=== PATIENT | male | born 2000 | race Caucasian/White ===

== ENCOUNTER → 2020-07-07 12:34 | Outpatient (CLI) | payer OTHER, SELFPAY ==
[2020-07-07 14:08] LABS: COVID19 -Nasal RAPID POSITIVE (Negative)
== END ==
PROVIDERS: Visit Provider Physician Assistant
DX: U07.1 COVID-19 (principal)
CPT/HCPCS: 87635

== ENCOUNTER 2023-07-04 10:30 | Emergency (ER) | payer OTHER, SELFPAY ==
[2023-07-04 10:35] VITALS: BP 140/82; PULSE 82; RESP 16; O2SAT 100; BMI 27.2
--- NOTE | 2023-07-04 10:39 | DI.RAD.S_ITS ---
PROCEDURE: XR FINGER LT MIN 2V INDICATIONS: jammed thumb/painful x 3 weeks TECHNIQUE: AP hand, 2 views of the left 1st finger(s) acquired. COMPARISON: None. FINDINGS: Bones: No fractures or dislocations. No suspicious bony lesions. Soft tissues: No suspicious soft tissue calcifications. IMPRESSION: No acute bony abnormality. If pain persists, consider cross-sectional imaging to evaluate for ligamentous injury. Dictated by: Karol Vilchis M.D. on 07/04/2023 at 11:20 Approved by: Karol Vilchis M.D. on 07/04/2023 at 11:21
--- NOTE | 2023-07-04 10:40 | DI.RAD.S_ITS ---
PROCEDURE: XR WRIST LT MIN 3V INDICATIONS: wrist pain TECHNIQUE: 4 views of the wrist were acquired. COMPARISON: None. FINDINGS: Bones: No fractures or dislocations. No suspicious bony lesions. Soft tissues: No suspicious soft tissue calcifications. IMPRESSION: No acute bony abnormality. If pain persists, consider cross-sectional imaging to evaluate for occult fracture or ligamentous injury. Dictated by: Karol Vilchis M.D. on 07/04/2023 at 11:19 Approved by: Karol Vilchis M.D. on 07/04/2023 at 11:20
--- NOTE | 2023-07-04 11:44 | ED_ITS ---
HPI - Extremity Injury (Upper) <Ilda Parker PA-C - Last Filed: 07/04/23 11:54> General Chief Complaint: Extremity Injury, Upper Stated Complaint: L thumb Time Seen by Provider: 07/04/23 11:18 Source: patient Mode of arrival: Ambulatory History of Present Illness HPI narrative: 22-year-old male presents to the ED status post a left hand injury sustained 3 weeks ago. Patient states that he was playing basketball when he accidentally jammed his left thumb against another player. Patient states that following that patient had pain in the left thumb with bruising in the thenar eminence. Patient states that the bruising has resolved since then, however he still feels some pain when flexing his thumb. Patient denies numbness, tingling, weakness. Patient is right-hand dominant. Related Data Allergies Allergy/AdvReac Type Severity Reaction Status Date / Time amoxicillin [From Augmentin] Allergy Anaphylaxis Verified 07/04/23 10:35 clavulanic acid Allergy Anaphylaxis Verified 07/04/23 10:35 [From Augmentin] Review of Systems <Ilda Parker PA-C - Last Filed: 07/04/23 11:54> Constitutional Constitutional: Denies chills, Denies fatigue, Denies fever(s), Denies frequent falls, Denies lethargy and Denies weakness Eyes Eyes: Denies change in vision, Denies eye discharge, Denies irritation and Denies loss of vision ENT Ears, Nose, Mouth, and Throat: Denies change in voice, Denies dizziness, Denies neck pain, Denies sore throat and Denies throat swelling Cardiovascular Cardiovascular: Denies chest pain, Denies irregular heart rhythm, Denies lightheadedness, Denies palpitations, Denies dyspnea, Denies dyspnea on exertion and Denies orthopnea Respiratory Respiratory: Denies cough, Denies dyspnea, Denies dyspnea on exertion and Denies wheezing Gastrointestinal Gastrointestinal: Denies abdominal pain, Denies change in bowel habits, Denies diarrhea, Denies nausea and Denies vomiting Musculoskeletal Musculoskeletal: Denies neck pain and Denies numbness Comments: Left thumb pain Integumentary/Breasts Skin/Breast: Denies pruritus, Denies erythema, Denies rash and Denies wounds Neurologic Neurologic: Denies behavioral changes, Denies confusion, Denies dizziness, Denies frequent falls, Denies loss of vision, Denies numbness and Denies weakness Psychiatric Psychiatric: Denies anxiety, Denies behavioral changes, Denies confusion, Denies depression, Denies homicidal ideation and Denies suicidal ideation Endocrine Endocrine: Denies fatigue, Denies flushing and Denies palpitations Hematologic/Lymphatic Hematologic/Lymphatic: Denies easy bruising Allergic/Immunologic Allergic/Immunologic: Denies urticaria, Denies throat swelling and Denies wheezing Patient History <Ilad Parker PA-C - Last Filed: 07/04/23 11:54> Medical History URI (upper respiratory infection) Social History Smoking Status: Never smoker Smoking Status: Never smoker alcohol intake frequency: a few times a week Substance Use Type: does not use Exam <Ilda Parker PA-C - Last Filed: 07/04/23 11:54> Narrative Exam Narrative: Const General:?cooperative, healthy appearing and comfortable [facility] Head:?normal to inspection Ears:?hearing grossly normal bilaterally Nose:?external nose normal Face and sinus:?normal facial exam and sinuses nontender Mouth:?oral mucosae normal Throat:?posterior oropharynx normal Eyes General:?appearance normal, both eyes and all related structures Neck Neck:?normal visual inspection and no lymphadenopathy noted Resp Effort & Inspection:?normal respiratory effort Auscultation:?clear to auscultation bilaterally Cardio Rate:?regular rate Rhythm:?regular rhythm Musculoskeletal Left hand appears normal without signs of swelling, bruising, deformities. There is full range of motion. Strength and sensation is intact. Patient is neurovascularly intact. Compartments are soft. Neuro General:?patient alert, patient awake and patient oriented x3 Initial Vital Signs Initial Vital Signs: Vital Signs Pulse Rate 82 07/04/23 10:35 Respiratory Rate 16 07/04/23 10:35 Blood Pressure 140/82 07/04/23 10:35 Pulse Oximetry 100 07/04/23 10:35 Oxygen Delivery Method Room Air 07/04/23 10:35 Oxygen Flow Rate 98 07/04/23 10:35 <Sarah Sky DO - Last Filed: 07/04/23 13:16> Initial Vital Signs Initial Vital Signs: Vital Signs Pulse Rate 82 07/04/23 10:35 Respiratory Rate 16 07/04/23 10:35 Blood Pressure 140/82 07/04/23 10:35 Pulse Oximetry 100 07/04/23 10:35 Oxygen Delivery Method Room Air 07/04/23 10:35 Oxygen Flow Rate 98 07/04/23 10:35 Course <Ilda Parker PA-C - Last Filed: 07/04/23 11:54> Orders Ordered: ED Orders 07/04/23 10:39 XR finger LT min 2V Stat 07/04/23 10:40 XR wrist LT min 3V Stat Vital Signs Vital signs: Vital Signs - 8 hr 07/04/23 10:35 07/04/23 11:59 Temperature 98.3 F Pulse Rate 82 74 Respiratory Rate 16 16 Blood Pressure 140/82 158/71 H Pulse Oximetry 100 97 Oxygen Delivery Method Room Air Room Air Oxygen Flow Rate 98 <Sarah Sky DO - Last Filed: 07/04/23 13:16> Orders Ordered: ED Orders 07/04/23 10:39 XR finger LT min 2V Stat 07/04/23 10:40 XR wrist LT min 3V Stat Vital Signs Vital signs: Vital Signs - 8 hr 07/04/23 10:35 07/04/23 11:59 Temperature 98.3 F Pulse Rate 82 74 Respiratory Rate 16 16 Blood Pressure 140/82 158/71 H Pulse Oximetry 100 97 Oxygen Delivery Method Room Air Room Air Oxygen Flow Rate 98 MDM - Extremity Injury (Upper) <Ilda Parker PA-C - Last Filed: 07/04/23 11:54> MDM Narrative Medical decision making narrative: 22-year-old male presents to the ED status post a left hand injury sustained 3 weeks ago. Concern for fracture/dislocation versus musculoskeletal sprain/strain versus other. Wrist and finger x-rays were obtained which showed no abnormal findings. Patient's symptoms are likely due to a musculoskeletal sprain/strain from the injury. Recommend ibuprofen, wrist splint for comfort. Recommend follow-up with PCP further evaluation. ED return precautions discus sed with patient. Patient verbalized understanding. Medical records reviewed: Yes Discharge Plan Departure Patient Disposition: Home Clinical Impression: Hand pain Qualifiers: Laterality: left Qualified Code(s): M79.642 - Pain in left hand Instructions: DI for Hand Pain Activity Restrictions/Additional Instructions: You were evaluated in the ED today for a hand injury. Your x-rays were normal. It appears that your symptoms are from a musculoskeletal sprain/strain of your left hand. You may keep a splint on for comfort, take ibuprofen 600 mg 3 times a day with food for pain and inflammation. Please follow-up with your PCP for further evaluation as soon as possible. Return to the ED if you have worsening symptoms, numbness, tingling, weakness. Referrals: Miscellaneous,Doctor, MD [Primary Care Provider] - Stand Alone Forms: Patient Portal/API ED Sign-out <Sarah Sky DO - Last Filed: 07/04/23 13:16> Cosign ED Attending Flory Attestation: I was immediately available in the department for consultation.
[2023-07-04 11:59] VITALS: BP 158/71; PULSE 74; RESP 16; TEMP 36.8; O2SAT 97
== END 2023-07-04 12:01 | disposition home or self-care (01) ==
PROVIDERS: Emergency Provider Student in an Organized Health Care Education/Training Program
DX: M79.642 Pain in left hand (principal)
CPT/HCPCS: 73110; 73140; 99281; 99283

== ENCOUNTER → 2024-04-02 13:48 | Outpatient (CLI) | payer OTHER, SELFPAY ==
--- NOTE | 2024-04-02 13:49 | DI.RAD.S_ITS ---
PROCEDURE: XR CLAVICLE RT INDICATIONS: Clavicle pain TECHNIQUE: 2 views of the clavicle were acquired. COMPARISON: None. FINDINGS: Bones: No acute displaced fracture or dislocation. Soft tissues: No suspicious calcifications IMPRESSION: No acute radiographic abnormality. If there is high concern for occult injury, consider repeat radiography or cross-sectional imaging. Dictated by: Aman Lira M.D. on 04/02/2024 at 17:15 Approved by: Aman Lira M.D. on 04/02/2024 at 17:15
== END ==
PROVIDERS: Referring Provider Nurse Practitioner Family; Visit Provider Nurse Practitioner Family
DX: M89.8X1 Other specified disorders of bone, shoulder (principal)
CPT/HCPCS: 73000